=== PATIENT | female | born 1935 | race Caucasian/White ===

== ENCOUNTER 2018-03-02 21:23 | Inpatient (IN) | payer MEDICARE, BC ==
[~2018-03-02] VITALS: Ht 162.6 cm; Wt 85.3 kg
[2018-03-02 21:05] VITALS: BP 118/48
--- NOTE | 2018-03-02 21:30 | NUR ---
PT ARRIVED VIA GURNEY TO 103 . REPORT RECEIVED FROM [facility] dean , pt is on 5 L O2 BY NC , pt has VSS , BP 118 / 48 , HR is 76 , RR 24 , O2 sat. is 94 % , Temp is 97.2 , and no c/o pain . Pt is A& O x 4 , and cooperative . Pt has daughter and son at bedside . 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 Pt has a respiratory hx of asthma , pneumonia with pleural effusions , COPD , and chronic hypercapnic respiratory failure . Pt has a cardiac hx with diastolic CHF , LVEF 55 % , and rheumatic mitral valve disease . 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 Pt has right eye droop and right facial droop from the surgery . Pt has a Izaguirre catheter with urine output that is tea colored . Pt has a 20 gauge IV in right AC and a double lumen IV in right upper arm . Pt has a left forearm skin tear with a Mepilex dressing and bruising onthe right wrist and hand from restraints that the pt was on 2 weeks ago in the ICU . Pt was intubated 2 weeks ago for high CO2 levels . pt has pitting edema in bilateral ankles , a 1 + edema . Pt is incontinent with a diaper .
--- NOTE | 2018-03-02 21:50 | NUR ---
Called MD about med recon , and CHART CLERK stated that it would be done in the morning per Dr Tadeo .
[2018-03-02] MEDS ORDERED: DOXY100C41 PO (22:32)
[2018-03-02] MEDS ORDERED: LEVO500T2 PO (22:32)
[2018-03-02] MEDS ORDERED: PROP15DR OP (22:32)
[2018-03-02] MEDS ORDERED: POLY17PO4 PO (22:32)
[2018-03-02] MEDS ORDERED: TOFA5TAB PO (22:32)
[2018-03-02] MEDS ORDERED: IBUP-1955 PO (22:32)
[2018-03-02] MEDS ORDERED: ACET-73 PO (22:32)
[2018-03-02] MEDS ORDERED: SIMV40TA5 PO (22:32)
[2018-03-02] MEDS ORDERED: MAGN400O6 PO (22:32)
[2018-03-02] MEDS ORDERED: DOCU100C36 PO (22:32)
[2018-03-02] MEDS ORDERED: SILV10PO2 TOP (22:32)
[2018-03-02] MEDS ORDERED: DIGO125T PO (22:32)
[2018-03-02] MEDS ORDERED: FURO20TA4 PO (22:32)
[2018-03-02] MEDS ORDERED: ASPI-612 PO (22:32)
[2018-03-02] MEDS ORDERED: SENN-18 PO (22:32)
[2018-03-02] MEDS ORDERED: FLUT12AE15 IH (22:32)
[2018-03-02] MEDS ORDERED: TRAM50TA2 PO (22:32)
[2018-03-02] MEDS ORDERED: Z GUARD REMEDY PASTE 57 GM TUBE TOP PRN (23:00)
--- NOTE | 2018-03-02 23:52 | NUR ---
BIPAP ORDERED FOR PT; SETTINGS 07/12, RR 14 PER NURSE REPORT. PT STATES SHE DOES NOT WANT A MASK ON FACE. STATES HER FACE IS VERY SENSITIVE FROM A RECENT SURGERY. PT IS SHOWING NO S/S OF RESPIRATORY DISTRESS AT THIS TIME. BIPAP IS STANDBY. AMBU BAG IS AT BEDSIDE. Addendum: 03/02/18 at 7314 by SAMRA WHITE RT NURSE IS AWARE.
[2018-03-03 06:49] VITALS: BP 130/49
[2018-03-03 10:47] VITALS: BP 123/55
[2018-03-03] MEDS ORDERED: MAGNESIUM HYDROXIDE 30 ML LIQUID UDC PO PRN (15:30)
[2018-03-03] MEDS ORDERED: MIRALAX 17 GM POWD.PACK PO PRN (15:30)
[2018-03-03] MEDS ORDERED: TRAMADOL HCL 50 MG TABLET PO PRN (15:30)
[2018-03-03] MEDS ORDERED: IBUPROFEN 600 MG TABLET PO PRN (15:30)
[2018-03-03] MEDS: DOCUSATE SODIUM 100 MG CAPSULE PO SCH (17:10)
--- NOTE | 2018-03-03 17:26 | NUR ---
S/P admission: Patient is alert and orientedx3 with hard of hearing. Continue on oxygen via nasal cannula at 2 LPM. not in distress. consumed 30% of meal. will continue monitor
[2018-03-03 17:34] VITALS: BP 121/48
--- NOTE | 2018-03-03 18:36 | NUR ---
Discontinue paez catheter as per MD order. Monitor urine output and diaper change per shift as ordered. will continue monitor
[2018-03-03 20:00] VITALS: BP 112/47
[2018-03-03] MEDS: SIMVASTATIN 40 MG TABLET PO SCH (20:33)
[2018-03-03] MEDS: DOXYCYCLINE HYCLATE 100 MG TABLET PO SCH (20:33)
[2018-03-03] MEDS: SENNOSIDES 1 TABLET PO SCH (20:33)
[2018-03-04 04:10] VITALS: BP 125/43
--- NOTE | 2018-03-04 07:00 | NUR ---
Nurse Notes: Received patient asleep, on bed on a semi- washington's position. Easily aroused. No SOB or distress noted. On O2 at 3L/min via nasal cannula. Call light within reach. Heels offloaded with pillows. Safety precautions initiated. Call light and telephone within reach. Encouraged patient to use call light whenever assistance is needed. Will continue to monitor.
[2018-03-04 07:26] VITALS: BP 109/44
[2018-03-04] MEDS ORDERED: ASPIRIN 325 MG TABLET PO SCH (09:00)
[2018-03-04] MEDS: FUROSEMIDE 20 MG TABLET PO SCH (09:00)
[2018-03-04] MEDS ORDERED: LEVOFLOXACIN 500 MG TABLET PO SCH (09:00)
[2018-03-04 09:21] VITALS: BP 106/53
[2018-03-04] MEDS: DOCUSATE SODIUM 100 MG CAPSULE PO SCH ×2 (09:28→16:58)
[2018-03-04] MEDS: DIGOXIN 125 MCG TABLET PO SCH (09:28)
[2018-03-04] MEDS: LEVOFLOXACIN 250 MG TABLET PO SCH (09:28)
[2018-03-04] MEDS: ASPIRIN 81 MG TAB.CHEW PO SCH (09:29)
[2018-03-04] MEDS: DOXYCYCLINE HYCLATE 100 MG TABLET PO SCH ×2 (09:29→20:31)
[2018-03-04 16:13] VITALS: BP 125/43
--- NOTE | 2018-03-04 17:24 | NUR ---
Nurse Notes: patient alert and oriented with periods of forgetfulness, remained stable throughout the shift with no acute changes noted. no changes in LOC or mentation. On oxygen at 3 L/min via nasal cannula. no SOB or distress. No s/sx of hypoxia noted. All due medications were given, tolerated well. kept patient clean, dry and comfortable as possible. Visited by daughter Virgen. Safety precautions observed. meaningful hourly rounding done. Call light and telephone within reach at all times. Will continue to monitor. Will endorse accordingly to incoming shift for continuity of care.
--- NOTE | 2018-03-04 19:30 | NUR ---
Pt is in bed laying Semi fowlers position sleeping but easily arousable . Pt is in no distress and has no c/o pain . Pt has one pillow on each side of buttocks for turning / repositioning . pt on 3 l O2 , at 96% . Bed is in low position , bed alarm on , side rails up x 2 , wheels locked , and call light is near pt at bed . VSS
[2018-03-04 20:00] VITALS: BP 118/45
[2018-03-04] MEDS: SENNOSIDES 1 TABLET PO SCH (20:31)
[2018-03-04] MEDS: SIMVASTATIN 40 MG TABLET PO SCH (20:31)
[2018-03-05 04:00] VITALS: BP 117/47
--- NOTE | 2018-03-05 06:59 | NUR ---
Pt slept well throughout the shift . Pt has no distress and no c/o pain . VSS and pt is cooperative .
--- NOTE | 2018-03-05 07:36 | NUR ---
Patient noted resting in bed with eyes closed, BIPAP noted not on patient at this time, informed by slot shift manager nurse that patient refused to wear BIPAP machine last night, no facial cues of pain noted, no signs of distress, call light in reach, bed locked and in lowest position, all extremities noted propped up with pillows, all needs met at this time
[2018-03-05] MEDS: DOCUSATE SODIUM 100 MG CAPSULE PO SCH ×2 (10:27→17:08)
[2018-03-05] MEDS: FUROSEMIDE 20 MG TABLET PO SCH (10:27)
[2018-03-05] MEDS: ASPIRIN 81 MG TAB.CHEW PO SCH (10:28)
[2018-03-05] MEDS: LEVOFLOXACIN 250 MG TABLET PO SCH (10:28)
[2018-03-05] MEDS: DOXYCYCLINE HYCLATE 100 MG TABLET PO SCH ×2 (10:28→21:10)
[2018-03-05] MEDS: DIGOXIN 125 MCG TABLET PO SCH (10:32)
[2018-03-05 16:06] VITALS: BP 126/48
--- NOTE | 2018-03-05 16:58 | NUR ---
INTERDISCIPLINARY TEAM CONFERENCE
--- NOTE | 2018-03-05 19:15 | NUR ---
No complaints of pain this shift, no signs of distress, encouraged to feed self during meals, all needs met
--- NOTE | 2018-03-05 19:25 | NUR ---
Pt is awake and laying in Semi fowlers position in bed . Pt has daughter in room . Pt's daughter was telling pt that it is important at night for her to wear the BIPAP . Pt kept replying that she did not want the BIPAP , that it never fits her face due to the prior surgery on her cheek . Pt is A & O x 3 , oriented , sometimes is forgetful . VSS
[2018-03-05 19:52] VITALS: BP 108/52
[2018-03-05] MEDS: SIMVASTATIN 40 MG TABLET PO SCH (21:10)
[2018-03-05] MEDS: SENNOSIDES 1 TABLET PO SCH (21:10)
[2018-03-05] MEDS: ACETAMINOPHEN ES 500 MG TABLET PO PRN (21:18)
[2018-03-06 05:00] VITALS: BP 134/46
--- NOTE | 2018-03-06 06:41 | NUR ---
Pt slept pretty well throughout the shift . At 0600 , pt stated she wanted a female nurse to help change her . But Denver HERNANDEZ needed another person , and there are only two male staff . Pt refused and said she will wait until 2 female staff would be able to help her .
--- NOTE | 2018-03-06 07:28 | NUR ---
Patient noted resting in bed with eyes closed, nasal cannula in place and noted at 3 liters, no facial cues of pain, no signs of distress noted, call light in reach, bed locked and in lowest position.
[2018-03-06 08:47] VITALS: BP 120/43
[2018-03-06] MEDS: DIGOXIN 125 MCG TABLET PO SCH (08:52)
[2018-03-06] MEDS: ASPIRIN 81 MG TAB.CHEW PO SCH (08:52)
[2018-03-06] MEDS: FUROSEMIDE 20 MG TABLET PO SCH (08:52)
[2018-03-06] MEDS: LEVOFLOXACIN 250 MG TABLET PO SCH (08:52)
[2018-03-06] MEDS: DOXYCYCLINE HYCLATE 100 MG TABLET PO SCH ×2 (08:52→20:56)
[2018-03-06] MEDS: DOCUSATE SODIUM 100 MG CAPSULE PO SCH ×2 (08:52→17:37)
--- NOTE | 2018-03-06 11:58 | NUR ---
INTERDISCIPLINARY TEAM CONFERENCE
--- NOTE | 2018-03-06 13:19 | NUR ---
INTERDISCIPLINARY TEAM CONFERENCE
[2018-03-06 16:09] VITALS: BP 129/52
--- NOTE | 2018-03-06 19:21 | NUR ---
RECEIVED PT AWAKE, ALERT, AND ORIENTEDX2. PT SHOWS NO SIGNS OF DISTRESS. CALL LIGHT WITHIN REACH, BED ALARM ON AND IN LOW POSITION, SIDE RAILS UPX2.SAFETY AND COMFORT PROVIDED. WILL CONTINUE TO MONITOR.
[2018-03-06 19:30] VITALS: BP 134/54
[2018-03-06] MEDS: SIMVASTATIN 40 MG TABLET PO SCH (20:56)
[2018-03-06] MEDS: SENNOSIDES 1 TABLET PO SCH (20:56)
[2018-03-06] MEDS: ACETAMINOPHEN ES 500 MG TABLET PO PRN (21:26)
--- NOTE | 2018-03-06 21:26 | NUR ---
PT GIVEN TYLENOL ES 500MG FOR PAIN. PT COMPLAINT OF 8/10. GENERALIZED PAIN. PT HAVE STABLE VITAL SIGNS. NO SHORTNESS OF BREATH. SAFETY AND COMFORT PROVIDED. WILL CONTINUE TO MONITOR.
--- NOTE | 2018-03-06 22:00 | NUR ---
PT REFUSE TO HAVE HER BIPAP ON AND WANTS ONLY TO BE ON NASAL CANULA. CHARGE NURSE AWARE. PT DOES NOT SHOWS ANY ACUTE DISTRESS. PT SAFETY AND COMFORT PROVIDED. WILL CONTINUE TO MONITOR.
--- NOTE | 2018-03-06 22:30 | NUR ---
PT COMPLAINT OF PAIN AGAIN GENERALIZED PAIN OF 8/. CHARGE NURSE AWARE. PT VITAL SIGNS STABLE. GIVEN ULTRAM 50MG. SAFETY AND COMFORT PROVIDED. WILL CONTINUE TO MONITOR.
--- NOTE | 2018-03-07 00:57 | NUR ---
PT ASLEEP. NO SIGNS OF ACUTE DISTRESS. SAFETY AND COMFORT PROVIDED. WILL CONTINUE TO MONITOR.
[2018-03-07 04:33] VITALS: BP 135/58
--- NOTE | 2018-03-07 06:50 | NUR ---
PT SLEPT THROUGHOUT THE SHIFT. PT SHOWS NO SIGNS OF DISTRESS. PT FORGETFUL. PT WANTS TO HAVE HER BED ELEVATED AND THEN ADJUST IT BACK AND FORTH. PT IV INTACT AND PATENT. PRESCRIBED MEDICATION GIVEN AND PT TOLERATED IT WELL. SAFETY AND COMFORT PROVIDED. WILL ENDORSE TO INCOMING NURSE.
[2018-03-07] MEDS: FUROSEMIDE 20 MG TABLET PO SCH (08:49)
[2018-03-07] MEDS: DIGOXIN 125 MCG TABLET PO SCH (08:49)
[2018-03-07] MEDS: DOCUSATE SODIUM 100 MG CAPSULE PO SCH ×2 (08:49→16:23)
[2018-03-07] MEDS: DOXYCYCLINE HYCLATE 100 MG TABLET PO SCH ×2 (08:49→20:11)
[2018-03-07] MEDS: LEVOFLOXACIN 250 MG TABLET PO SCH (08:49)
[2018-03-07] MEDS: ASPIRIN 81 MG TAB.CHEW PO SCH (08:49)
[2018-03-07 09:00] VITALS: BP 100/61
--- NOTE | 2018-03-07 10:49 | NUR ---
Received patient awake, alert and orientedx 3. hard of hearing. Consumed 100% of breakfast meal by herself with standby assist of the staff. not in distress. will continue monitor
[2018-03-07 16:00] VITALS: BP 97/46
[2018-03-07 16:04] VITALS: BP 97/46
[2018-03-07 19:30] VITALS: BP 126/57
[2018-03-07] MEDS: SIMVASTATIN 40 MG TABLET PO SCH (20:11)
[2018-03-07] MEDS: SENNOSIDES 1 TABLET PO SCH (20:11)
--- NOTE | 2018-03-07 21:01 | NUR ---
RECEIVED PT AWAKE,ALERT,AND ORIENTEDX2. PT SHOWS NO SIGNS OF DISTRESS. CALL LIGHT WITHIN REACH, BED ALARM ON ,LOW POSITION AND SIDE RAILS UPX2. WILL CONTINUE TO MONITOR.
[2018-03-08 04:00] VITALS: BP 134/42
--- NOTE | 2018-03-08 06:26 | NUR ---
PT SLEPT THROUGHOUT THE SHIFT. PT SHOWS NO SIGNS OF DISTRESS. PRESCRIBED MEDICATION GIVEN AND PT TOLERATED IT WELL.SAFETY AND COMFORT PROVIDED. ALL NEEDS ARE MET.PT TURNED AND REPOSITIONED. WILL ENDORSE TO DAYSHIFT NURSE FOR CONTINUITY OF CARE.
--- NOTE | 2018-03-08 07:40 | NUR ---
Patient noted sitting up in bed eating breakfast, no facial cues of pain noted, no signs of distress noted, laboratory manager nurse states patient refused BIPAP, on continuous O2 at 3 Liters nasal cannula, call light in reach, bed locked and in lowest position
[2018-03-08] MEDS: ASPIRIN 81 MG TAB.CHEW PO SCH (08:37)
[2018-03-08] MEDS: FUROSEMIDE 20 MG TABLET PO SCH (08:37)
[2018-03-08] MEDS: DOXYCYCLINE HYCLATE 100 MG TABLET PO SCH ×2 (08:37→20:39)
[2018-03-08] MEDS: DOCUSATE SODIUM 100 MG CAPSULE PO SCH ×2 (08:37→17:29)
[2018-03-08] MEDS: LEVOFLOXACIN 250 MG TABLET PO SCH (08:37)
[2018-03-08] MEDS: DIGOXIN 125 MCG TABLET PO SCH (08:44)
[2018-03-08 08:51] VITALS: BP 120/50
[2018-03-08] MEDS ORDERED: BISACODYL 5 MG TABLET.DR PO ONE (12:15)
[2018-03-08 15:42] VITALS: BP 131/49
--- NOTE | 2018-03-08 18:23 | NUR ---
PRN bisacodyl given for constipation
[2018-03-08 19:50] VITALS: BP 129/46
--- NOTE | 2018-03-08 20:10 | NUR ---
Lying in bed hob up c/o being cold requesting warm blankets and the heat to be turn up. o2 @ 3 L n/c right upper midline intact. Lying on air mattress. Disposable brief clean and dry. Needs taken care of Siderails up Call light within reach.
[2018-03-08] MEDS: SENNOSIDES 1 TABLET PO SCH (20:38)
[2018-03-08] MEDS: SIMVASTATIN 40 MG TABLET PO SCH (20:39)
--- NOTE | 2018-03-08 22:00 | NUR ---
Refusing Bipap continue o2 @ 3 L n/c medication complaint after speaking loudly and repeating what medicines I was giving and what the medicine was for x3.
[2018-03-09 04:30] VITALS: BP 120/49
--- NOTE | 2018-03-09 06:51 | NUR ---
Lying in bed eyes closed resp even and unlab resting comfortably slept 9 hours.
--- NOTE | 2018-03-09 07:27 | NUR ---
Patient noted resting in bed with eyes closed, no facial cues of pain noted, no signs of distress noted, call light in reach, bed locked and in lowest position, all extremities propped on pillows, x2 bed rails noted, all needs met.
[2018-03-09] MEDS: LEVOFLOXACIN 250 MG TABLET PO SCH (08:21)
[2018-03-09] MEDS: FUROSEMIDE 20 MG TABLET PO SCH (08:21)
[2018-03-09] MEDS: DOXYCYCLINE HYCLATE 100 MG TABLET PO SCH (08:21)
[2018-03-09] MEDS: DOCUSATE SODIUM 100 MG CAPSULE PO SCH ×2 (08:21→16:56)
[2018-03-09] MEDS: ASPIRIN 81 MG TAB.CHEW PO SCH (08:21)
[2018-03-09] MEDS: DIGOXIN 125 MCG TABLET PO SCH (08:23)
[2018-03-09 08:25] VITALS: BP 115/52
[2018-03-09] MEDS: ACETAMINOPHEN ES 500 MG TABLET PO PRN (12:05)
[2018-03-09 15:31] VITALS: BP 136/64
--- NOTE | 2018-03-09 18:25 | NUR ---
PRN Tylenol given this shift for back pain, no changes in condition this shift, no distress noted this shift, will give shift report to warp hand nurse
[2018-03-09 19:45] VITALS: BP 140/77
[2018-03-09] MEDS: SIMVASTATIN 40 MG TABLET PO SCH (20:33)
[2018-03-09] MEDS: SENNOSIDES 1 TABLET PO SCH (20:33)
[2018-03-10 04:00] VITALS: BP 130/63
--- NOTE | 2018-03-10 04:42 | NUR ---
quiet night. no acute distress noted.needs attended. fall precautions maintained. refused bipap. no respiratory distress noted. incontinent of bowel and bladder. kep clean and dry, siderails up for safety.vital signs stable.
[2018-03-10] MEDS: FUROSEMIDE 20 MG TABLET PO SCH (08:50)
[2018-03-10] MEDS: ASPIRIN 81 MG TAB.CHEW PO SCH (08:50)
[2018-03-10] MEDS: DOCUSATE SODIUM 100 MG CAPSULE PO SCH (08:50)
[2018-03-10] MEDS: DIGOXIN 125 MCG TABLET PO SCH (08:50)
[2018-03-10 08:59] VITALS: BP 144/45
--- NOTE | 2018-03-10 15:16 | NUR ---
Patient is alert and orientedx3, hard of hearing in stable condition. 2x large soft BM noted. For discharge to [facility]. supervisor riveting at 4pm via ambulance. Report given to MARY Mckeon.
[2018-03-10 15:35] VITALS: BP 98/65
--- NOTE | 2018-03-10 16:22 | NUR ---
Patient discharge to [facility] at 415pm in stable condition via stretcher with 2 EMT thru ambulance. MD notified and daughter aware.
== END 2018-03-10 16:15 | DRG 189 ==
PROVIDERS: ADMIT Physical Medicine & Rehabilitation Pain Medicine; ATTEND Physical Medicine & Rehabilitation Pain Medicine
DX: J96.22 Acute and chronic respiratory failure with hypercapnia (principal); J15.9 Unspecified bacterial pneumonia; G92 Toxic encephalopathy; E66.2 Morbid (severe) obesity with alveolar hypoventilation; E46 Unspecified protein-calorie malnutrition; I50.32 Chronic diastolic (congestive) heart failure; J98.11 Atelectasis; Z68.35 Body mass index [BMI] 35.0-35.9, adult; J45.909 Unspecified asthma, uncomplicated; G47.33 Obstructive sleep apnea (adult) (pediatric); I05.9 Rheumatic mitral valve disease, unspecified; I11.0 Hypertensive heart disease with heart failure; J44.9 Chronic obstructive pulmonary disease, unspecified; E78.5 Hyperlipidemia, unspecified; Z88.5 Allergy status to narcotic agent; D63.8 Anemia in other chronic diseases classified elsewhere; M19.90 Unspecified osteoarthritis, unspecified site; Z53.20 Procedure and treatment not carried out because of patient's decision for unspecified reasons; Z85.51 Personal history of malignant neoplasm of bladder; Z85.828 Personal history of other malignant neoplasm of skin
CPT/HCPCS: 92523; 92526; 92610; 97110; 97112; 97116; 97530; 97535; A9150